=== PATIENT | male | born 1975 | race Caucasian/White ===

== ENCOUNTER → 2018-05-30 | Outpatient (CLI) | payer BC ==
--- NOTE | 2018-05-30 19:14 | PN ---
PROGRESS NOTE A 43-year-old male patient coming in for a followup regarding his obstructive sleep apnea treatment. He was diagnosed with JONATHAN back in August 2016. The patient had severe JONATHAN with an AHI of 86. Currently is on a CPAP at a pressure of 11 cm of water. He is in need for a prescription for his supplies. He has had no specific complaints. No major hypersomnia or sleepiness during the day. He is very compliant and he does not sleep without his CPAP machine. His CPAP compliancy for more than 4 hours is 100% and he is averaging about 6.6 hours of CPAP use per night. His AHI is down to 0.9. Leak factor 38 L/minute. Weight is down by around 7 pounds. He was diagnosed having hypertension and he was started on lisinopril. REVIEW OF SYSTEMS: A 12-point review of systems was done. Positive findings are mentioned above in history of present illness. PHYSICAL EXAMINATION: BP is 152/93, pulse 105, respirations 18, temperature 98.2, saturation 99% on room air. Weight is 207, height is 5 feet 7 inches, [place] score is 4, BMI 31.9. GENERAL APPEARANCE: Calm, comfortable. HEENT: Atraumatic, normocephalic. NECK: Supple. There is no JVD. No goiter or neck mass. LUNGS: Diminished. Otherwise clear. HEART: Sounds regular rate and rhythm. Normal S1, S2. No S3, S4. No murmurs. ABDOMEN: Soft, nontender. No organomegaly. EXTREMITIES: No edema. No cyanosis or clubbing. Neurologically, OA x3 with no focal neurological deficit. IMPRESSION: 1. Severe symptomatic obstructive sleep apnea with an apnea-hypopnea index of 87, currently on CPAP pressure of 11 with excellent clinical response and compliance. 2. Hypertension. PLAN: 1. Encourage further weight loss. 2. Continue CPAP therapy and the CPAP supplies will be renewed and the patient is utilizing a Simplus small full face mask. 3. Treatment is successful. No need for any further adjustment. The patient is benefitting from the treatment. See me back in a year or sooner if needed. MMODL / IJN: [id number] /
== END | disposition home or self-care (01) ==
LOC: SLEEP 15:10
PROVIDERS: ATTEND Internal Medicine Critical Care Medicine
DX: G47.33 Obstructive sleep apnea (adult) (pediatric) (principal); I10 Essential (primary) hypertension; Z99.89 Dependence on other enabling machines and devices